=== PATIENT | male | born 1975 ===

== ENCOUNTER 2017-02-18 09:26 | Emergency (ER) | payer BC, OTHER ==
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
== END 2017-02-18 10:47 | disposition short-term general hospital (02) ==
LOC: UCEAST 09:26
DX: L03.115 Cellulitis of right lower limb (principal); L40.50 Arthropathic psoriasis, unspecified; Z79.899 Other long term (current) drug therapy
CPT/HCPCS: 99202; G0463

== ENCOUNTER 2017-02-18 11:37 | Emergency (ER) | payer BC ==
[2017-02-18] MEDS ORDERED: Amoxicillin/Clavulanate TAB* 875 MG PO ONE ×2 (14:04→14:06)
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
== END 2017-02-18 14:34 | disposition home or self-care (01) ==
LOC: ED 11:37
DX: L03.90 Cellulitis, unspecified (principal); M54.9 Dorsalgia, unspecified
CPT/HCPCS: 99282; A9270-GY

== ENCOUNTER 2017-06-02 12:33 | Emergency (ER) | payer BC ==
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
== END 2017-06-02 13:39 | disposition home or self-care (01) ==
LOC: UCEAST 12:33
DX: Z51.89 Encounter for other specified aftercare (principal); L03.90 Cellulitis, unspecified
CPT/HCPCS: 99212; G0463